=== PATIENT | female | born 1985 | race African-American/Black ===

== ENCOUNTER 2022-11-03 17:54 | Emergency (ER) | payer OTHER ==
[2022-11-03] MEDS ORDERED: HYDROcodone/APAP 7.5 MG/325 MG (LORTAB, LORCET PLUS) TABLET PO STA (18:26)
--- NOTE | 2022-11-03 18:26 | ED EENT ---
History of Present Illness General Chief Complaint: Dental Problems/Pain Stated Complaint: DENTAL PAIN Nursing Triage Note: PT AMB TO FT1 WITH CC OF R SIDE DENTAL PAIN X 3 DAYS. PT STATES IS SCHEDULED TO SEE DENTIST November TO HAVE TOOTH REMOVED. PT STATES PAIN INCREASED THIS AFTERNOON. Source: patient Exam Limitations: no limitations History of Present Illness Date Seen by Provider: November 03, 2022 Time Seen by Provider: 18:25 Initial Comments Patient is a 37-year-old female presents ED with right-sided dental pain for the past 3 days. Pain is described as sharp. Pain initially was controlled with Tylenol ibuprofen. Pain increased today. Pain with eating. She states she is scheduled for a dental extraction of her right upper and lower molars. She is unsure what tooth is bothering her. Pain rates from the jaw to the ear. Denies any hearing loss, ear ringing, headache, nausea, vomiting, fever, facial swelling. Similar type pain in the past. Allergies and Home Medications Allergies Coded Allergies: No Known Drug Allergies (Unverified , 11/03/22) Patient Home Medication List Home Medication List Reviewed: Yes Clindamycin HCl (Clindamycin HCl) 300 Mg Capsule, 300 MG PO QID Prescribed by: ALBERT GAYLE on 11/03/22 182 Hydrocodone/Acetaminophen (Hydrocodone-Acetamin 5-325 mg) 5 Mg-325 Mg Tablet, 1 TAB PO Q4H PRN for PAIN-MODERATE (5-7) Prescribed by: ALBERT GAYLE on 11/03/22 182 Review of Systems Review of Systems Constitutional: No chills, No diaphoresis, No malaise, No weakness Eyes: Denies Blurred Vision, Denies Drainage, Denies Decreased Acuity Ears: Denies Dizziness, Denies Pain Nose: denies clots, denies congestion, denies pain, denies bloody discharge, denies clear discharge Mouth: denies clots, denies loose teeth; pain; denies swelling Throat: denies pain, denies swelling, denies discharge Respiratory: No cough, No dyspnea on exertion Cardiovascular: No chest pain Gastrointestinal: No abdominal pain, No diarrhea, No nausea, No vomiting Musculoskeletal: No back pain, No joint pain Skin: No change in color, No change in hair/nails Past Exacmwm-Xlfewv-Lujnxc Hx Patient Social History Tobacco Use?: No Substance use?: Yes Substance type: Marijuana Substance frequency: Daily Alcohol Use?: No Pt feels they are or have been: No Physical Exam Vital Signs Vital Signs - First Documented 11/03/22 18:00 Temp 36.0 Pulse 105 Resp 18 B/P (MAP) 116/74 (88) Pulse Ox 98 O2 Delivery Room Air Height, Weight, BMI Height: '" Weight: lbs. oz. kg; BMI Method: General Appearance: WD/WN, no apparent distress Eyes: bilateral eye normal inspection, bilateral eye PERRL, bilateral eye EOMI Ears: bilateral ear auricle normal, bilateral ear canal normal, bilateral ear bleeding Nose: normal inspection Mouth/Throat: other (Right lower and upper molar dental decay. Gum swelling erythema. No palpable abscess.) Neck: non-tender, full range of motion, supple Cardiovascular: regular rate, rhythm, no edema, no gallop, no JVD Respiratory: chest non-tender, lungs clear, normal breath sounds, no respiratory distress, no accessory muscle use Gastrointestinal: normal bowel sounds, non tender, soft, no organomegaly Neurologic/Psychiatric: grade tamper II-XII nml as tested, no motor/sensory deficits, al ert, normal mood/affect Skin: normal color, warm/dry Progress/Results/Core Measures Results/Orders My Orders Orders - EFRAIN CORTEZ Hydrocodone/Apap 7.5/325 Tab (Lortab 7. (11/03/22 18:26) Vital Signs/I&O 11/03/22 18:00 Temp 36.0 Pulse 105 Resp 18 B/P (MAP) 116/74 (88) Pulse Ox 98 O2 Delivery Room Air Blood Pressure Mean: 88 Departure Communication (PCP) Reviewed previous ER visits, H&P, lab testing. Right upper and lower dental tenderness. Exam noted. No evidence of palpable abscess. Refused dental block. There is no facial swelling or redness. Bilateral TMs clear. She states she is scheduled to have her molars removed on November 20. Discussed with patient concern for developing infection. Patient will be started on antibiotics clindamycin. Will discharge with pain medication. Continue with Tylenol or ibuprofen. If increased redness or swelling to return back to ED. Dental follow-up in 2 to 3 days. Impression Primary Impression: Pain, dental Disposition: 01 HOME, SELF-CARE Condition: Stable Departure-Patient Inst. Decision time for Depature: 18:27 Referrals: [facility] [place],LOCAL PHYSICIAN (PCP) Primary Care Physician Patient Instructions: Dental Pain Add. Discharge Instructions: Recommend following up with a dentist. If increasing pain or swelling to return back to ED or follow-up with dentist All discharge instructions reviewed with patient and/or family. Voiced understanding. Scripts Hydrocodone/Acetaminophen (Hydrocodone-Acetamin 5-325 mg) 5 Mg-325 Mg Tablet 1 TAB PO Q4H PRN for PAIN-MODERATE (5-7), #8 TAB Prov: EFRAIN CORTEZ 11/03/22 Clindamycin HCl (Clindamycin HCl) 300 Mg Capsule 300 MG PO QID for 7 Days, #28 CAP Prov: EFRAIN CORTEZ 11/03/22 EFRAIN CORTEZ November 03, 2022 18:26
[2022-11-03] MEDS ORDERED: CLIN-144 PO (18:29)
[2022-11-03] MEDS ORDERED: ACHD5005 PO (18:29)
[2022-11-03 18:45] VITALS: BP 116/74
== END 2022-11-03 18:43 | disposition home or self-care (01) ==
LOC: EDUNIT# 17:54 → ER 17:58
DX: K02.9 Dental caries, unspecified (principal); Z28.310 Unvaccinated for COVID-19
CPT/HCPCS: 99283

== ENCOUNTER 2022-11-18 10:02 | Outpatient (RCR) | payer OTHER | END 2022-11-18 17:00 | disposition home or self-care (01) | PROVIDERS: ATTEND Family Medicine | DX: Z02.71 Encounter for disability determination (principal) ==

== ENCOUNTER → 2022-11-18 | Outpatient (CLI) | payer OTHER ==
[~2022-11-18] MED LIST: ACHD5005 PO; CLIN-144 PO
--- NOTE | 2022-11-18 13:03 | Diagnostic Imaging Report ---
Left ankle at 0936 hours. Indication: Followup fracture 3 views were obtained. There are no prior studies available for comparison. There is an orthopedic plate and screw fixation device securing the fracture of the distal fibula. The orthopedic hardware seems to be in good position. There has been some healing of the fracture itself. Fracture lines are still visible indicating that the fracture has not healed completely yet. There is also orthopedic plate and screw fixation device securing a fracture of the medial aspect of the distal tibia. The orthopedic hardware appears to be in good position and the fracture of the medial malleolus appears to have nearly completely healed. There is no fracture or acute bony abnormality evident. The ankle mortise is not widened and the talar dome is smooth. The soft tissues are unremarkable. Impression: 1. There are postsurgical and posttraumatic changes as described above. There is no acute bony abnormality noted. 2. If previous exams are available they would be helpful for comparison. Dictated by: Dictated on workstation # [id number]
== END ==
LOC: RAD 09:27
PROVIDERS: ATTEND Family Medicine
DX: S82.402D Unspecified fracture of shaft of left fibula, subsequent encounter for closed fracture with routine healing (principal); X58.XXXD Exposure to other specified factors, subsequent encounter
CPT/HCPCS: 73610

== ENCOUNTER 2022-11-28 13:28 | Emergency (ER) | payer SELFPAY ==
[~2022-11-28] VITALS: Ht 171 cm; Wt 63.5 kg
[2022-11-28 13:35] VITALS: BP 130/92
--- NOTE | 2022-11-28 13:55 | ED Lower Extremity ---
General Chief Complaint: Lower Extremity Stated Complaint: LT FOOT PAIN Source: patient Exam Limitations: no limitations History of Present Illness Date Seen by Provider: Nov 28, 2022 Time Seen by Provider: 13:51 Initial Comments Patient Is a 37-year-old female presents ED with pain to her left foot. She reports a small lump between her second and third toe on the dorsum side 1 month ago. She reports sharp pain that started 1 week ago. Pain occurs with walking. She suffered a bimalleolar fracture last May required surgery. She has been wearing a cam boot currently and physical therapy. She does wear her cam boot periodically. Patient denies of any new trauma. Denies any swelling, redness or bruising. Denies take anything for pain. Allergies and Home Medications Allergies Coded Allergies: No Known Drug Allergies (Unverified , 11/03/22) Patient Home Medication List Home Medication List Reviewed: Yes Clindamycin HCl (Clindamycin HCl) 300 Mg Capsule, 300 MG PO QID Prescribed by: ALBERT GAYLE on 11/03/221828 Hydrocodone/Acetaminophen (Hydrocodone-Acetamin 5-325 mg) 5 Mg-325 Mg Tablet, 1 TAB PO Q4H PRN for PAIN-MODERATE (5-7) Prescribed by: ALBERT GAYLE on 11/03/221828 Review of Systems Constitutional: No chills, No diaphoresis, No fever, No malaise EENTM: No hearing loss, No ear pain, No blurred vision Respiratory: No cough, No dyspnea on exertion Cardiovascular: No chest pain Gastrointestinal: No abdominal pain, No diarrhea, No nausea, No vomiting Genitourinary: No decreased output, No discharge Musculoskeletal: No back pain; muscle pain Skin: No change in color All Other Systems Reviewed Negative Unless Noted: Yes Physical Exam Vital Signs Vital Signs - First Documented 11/28/22 13:35 Temp 36.9 Pulse 98 Resp 22 B/P (MAP) 130/92 (105) Pulse Ox 100 Capillary Refill : Height, Weight, BMI Height: '" Weight: lbs. oz. kg; BMI Method: General Appearance: WD/WN, no apparent distress HEENT: PERRL/EOMI, normal ENT inspection, TMs normal, pharynx normal Neck: non-tender, full range of motion, supple, normal inspection Cardiovascular: regular rate, rhythm, no edema, no gallop, no JVD Respiratory: chest non-tender, lungs clear, normal breath sounds, no respiratory distress Gastrointestinal: normal bowel sounds, non tender, soft, no organomegaly Back: normal inspection, no CVA tenderness Knees: bilateral knee non-tender, bilateral knee normal inspection, bilateral knee normal range of motion Ankles: bilateral ankle non-tender, bilateral ankle normal inspection, bilateral ankle normal range of motion Feet: left foot other (Pea-sized freely movable nodule between the second and third metatarsal. Tenderness to palpate. No surrounding redness or swelling.) Progress/Results/Core Measures Results/Orders Vital Signs/I&O 11/28/22 13:35 Temp 36.9 Pulse 98 Resp 22 B/P (MAP) 130/92 (105) Pulse Ox 100 Departure Communication (PCP) Reviewed previous ER visits, H&P, lab testing. Had a x-ray performed earlier this month of her left ankle. No acute fractures or abnormalities were noted. Hardware in place. Patient is currently in physical therapy. She does wear her cam boot as needed. She is concerned for this pain to her left dorsum foot between the second and third metatarsals. Palpable hard nodule. Differential diagnosis almaguer neuroma, scar tissue, foreign body. Her x-ray on the was negative for foreign body or fracture to this location. Tenderness to palpate. She has been wearing tight footwear which may be contributing to potential developing Almaguer neuroma. Pain occurs with walking. Discussed with patient that recommend open footwear. Activity modification, anti-inflammatories ice rest. Recommend podiatry follow-up. No further imaging needed at this time. No evidence of cellulitis. No evidence of fluctuant mass suggesting infection. Impression Primary Impression: Foot pain Disposition: HOME, SELF-CARE Condition: Stable Departure-Patient Inst. Decision time for Depature: 13:54 Referrals: NO,LOCAL PHYSICIAN (PCP) Primary Care Physician MICHAEL LARA DPM Patient Instructions: Almaguer's Neuroma Add. Discharge Instructions: Recommend wearing open toed shoes. Recommend following up with podiatry. May consider arch supports or foot pads. Recommend activity modification. Anti- inflammatories for pain. Recommend padding the area All discharge instructions reviewed with patient and/or family. Voiced understanding. EFRAIN CORTEZ Nov 28, 2022 13:55
== END 2022-11-28 14:03 | disposition home or self-care (01) ==
LOC: EDUNIT# 13:28 → ER 13:31
DX: M79.672 Pain in left foot (principal); Z28.310 Unvaccinated for COVID-19
CPT/HCPCS: 99281